=== PATIENT | female | born 1955 | race Caucasian/White ===

== ENCOUNTER 2017-07-17 20:30 | Emergency (ER) | payer MEDICAID ==
[~2017-07-17] VITALS: Ht 157.5 cm; Wt 76.2 kg
[~2017-07-17 20:30] MED LIST: METFORMIN HCL500 MG PO
[2017-07-17 20:37] VITALS: Ht 157.5 cm; Wt 76.2 kg
[2017-07-17 22:09] VITALS: BP 160/87
== END 2017-07-17 22:09 | disposition home or self-care (01) ==
LOC: ED 20:30
DX: L02.01 Cutaneous abscess of face (principal); E11.9 Type 2 diabetes mellitus without complications
CPT/HCPCS: J2001

== ENCOUNTER 2018-12-10 11:57 | Inpatient (IN) | payer MEDICAID ==
[~2018-12-10] VITALS: Ht 157.5 cm; Wt 75.7 kg
[2018-12-10 12:34] LABS: BASOPHIL % 0.4 % (0-2); PLATELET COUNT 262 x10^3mcL (130-400); RED CELL DISTRIBUTION WIDTH 12.7 % (11.5-14.5)
[2018-12-10 12:50] LABS: ALBUMIN 1.9 g/dL (3.4-5.0); BILIRUBIN TOTAL 0.5 mg/dL (0.20-1.00); CALCIUM 7.7 mg/dL (8.5-10.1); CARBON DIOXIDE 26.4 mmol/L (21-32); CREATININE SERUM 1.7 mg/dL (0.6-1.0); TOTAL PROTEIN, SERUM 6.6 g/dL (6.4-8.2)
--- NOTE | 2018-12-10 14:15 | NUR ---
PT OFF OF UNIT TO RADIOLOGY VIA [facility].
[2018-12-10 14:44] LABS: microscopic required? YES; urine erythrocyte 1+ (NEGATIVE)
--- NOTE | 2018-12-10 14:56 | NUR ---
PT BROUGHT BACK FROM ULTRASOUND, AAOX4, RESP E/U, NO ACUTE DISTRESS NOTED AT THIS TIME.
--- NOTE | 2018-12-10 15:52 | NUR ---
PT AMBULATED TO RESTROOM, STEADY GAIT NOTED.
--- NOTE | 2018-12-10 17:30 | NUR ---
PT AMBULATED TO RESTROOM, STEADY GAIT NOTED.
--- NOTE | 2018-12-10 17:50 | NUR ---
REPORT GIVEN TO MARY GARCIA ON MED/SURG UNIT TO ASSUME CARE OF PT
--- NOTE | 2018-12-10 18:00 | NUR ---
RECEIVED PT FROM ED [facility]IA [facility], CAME IN DUE TO VOMITING AND ABDOMINAL PAIN X3 DAYS. AAOX4. DENIES HEADACHE/DIZZINESS. ABLE TO FOLLOW COMMANDS. NO SOB NOTED. DENIES CHEST PAIN/PRESSURE. DENIES ABDOMINAL DISCOMFORT AT THIS TIME. LAST BM TODAY, FORMED. ABDOMEN IS SOFT. VOIDS. IV SITE PATENT AND INTACT. RECEIVED PT FROM ED W/ NS BOLUS ONGOING. SIDE RAILS UPX2. CALL LIGHT ON REACH. SON AT BEDSIDE. ENDORSED TO PRIMARY NURSE JOSE FOR CONTINUITY OF CARE
[2018-12-10 18:10] VITALS: BP 148/73
[2018-12-10 18:14] VITALS: Ht 157.5 cm; Wt 75.7 kg
--- NOTE | 2018-12-10 18:47 | NUR ---
PT RESTING IN BED, AOX4, RESP E/U ON RA. DENIES HEADACHE, ABD PAIN OR N/V AT THIS TIME. NO ACUTE DISTRESS NOTED. SEEN BY DR. QUINTANILLA AT BEDSIDE. IV TO R HAND W/ NO SIGNS OF INFILTRATION, INFUSING BOLUSES STARTED IN THE ER INFUSING WELL. BED IN LOWEST POSITION AND CALL LIGHT WITHIN REACH. PT SON AT BEDSIDE. WILL ENDORSE TO ONCOMING NURSE.
--- NOTE | 2018-12-10 19:05 | NUR ---
RECEIVED PT SITTING UP IN BED EATING DINNER, FEEDING SELF, NO DYSPHAGIA NOTED. NO ACUTE DISTRESS OBSERVED, DENIES PAIN OR DISCOMFORT AT THIS TIME. AA/OX4, ABLE TO MAKE NEEDS KNOWN, SPEECH CLEAR AND APPORPRIATE. MED-SURG, NO TELE, NO CP. PULSES PRESENT AND EQUAL THROUGHOUT, NO EDEMA. BREATHING ON RA, EVEN AND UNLABORED, NO SOB OR DYSPNEA OBSERVED. ABD ROUND AND SOFT WITH ACTIVE BOWEL SOUNDS, DENIES N/V/D. FREELY VOIDS URINE,UA (+) UTI, PT DENIES DYSURIA, BURNING WITH URINATION, OR URGENCY. AMBULATORY WITH BRP, ABLE TO TURN AND REPOSITION SELF IN BED. IV TO RH IN PLACE, INFUSING ORDERED NS BOLUSES AT THIS TIME, NO S&S PHLEBITIS OR INFILTRATION NOTED. COMFORT AND SAFETY MEASURES IN PLACE. ALL NEEDS ASSESSED AND ATTENDED TO. CALL LIGHT WITHIN REACH. WILL CONTINUE TO MONITOR
[2018-12-10 19:30] VITALS: BP 158/69
[2018-12-10 21:00] VITALS: BP 137/76
--- NOTE | 2018-12-10 21:00 | NUR ---
IVF BOLUSES OF NS FINISHED ORDERED, VITAL SIGNS STABLE AND INPUTTED. PT AMBULATING AROUND ROOM WITH STRONG AND STEADY GAIT. NO ACUTE DISTRESS OBSERVED. CALL LIGHT WITHIN REACH. WILL CONTINUE TO MONITOR
--- NOTE | 2018-12-11 06:13 | NUR ---
NO SIGNIFICANT CHANGES TO REPORT, PT COMPLIED WITH NURSING CARE THROUGHOUT THE SHIFT WITH NO ACUTE EVENTS OVERNIGHT. NO ACUTE DISTRESS OBSERSVED AT THIS TIME. PT LAYING IN BED, BREATHING EVEN AND UNLABORED. COMFORT AND SAFETY MEASURES MAINTAINED. ALL NEEDS ASSESSED AND ATTENDED TO. CALL LIGHT WITHIN REACH. WILL CONTINUE TO MONITOR AND ENDORSE CARE TO DAY SHIFT NURSE
[2018-12-11 06:19] LABS: BASOPHIL % 0.3 % (0-2); PLATELET COUNT 269 x10^3mcL (130-400); RED CELL DISTRIBUTION WIDTH 12.6 % (11.5-14.5)
[2018-12-11 06:34] LABS: CALCIUM 7.5 mg/dL (8.5-10.1); CARBON DIOXIDE 22.8 mmol/L (21-32); CREATININE SERUM 1.1 mg/dL (0.6-1.0); MAGNESIUM 1.6 mg/dL (1.8-2.4); PHOSPHOROUS 2.8 mg/dL (2.5-4.9); POTASSIUM SERUM 4.1 mmol/L (3.5-5.1)
--- NOTE | 2018-12-11 07:10 | NUR ---
RECEIVED REPORT FROM KAYLI RN, PT IN BED W/ NO ACUTE DISTRESS
--- NOTE | 2018-12-11 07:30 | NUR ---
PT IN BED, IN NO ACUTE DISTRESS, VERBAL, [place], ABLE TO MAKE NEEDS KNOWN, CALM AND COPPERATIVE, PERRLA, NO REDNESS/DRAINAGE, RESP EVEN, NO SOB/COUGH, MEDSURG, DENIED CP/PRESSURE/SOSA, DENIED N/V/D, CHEST RISE SYMMETRICALLY, ABD ROUND AND NONTENDER TO TOUCH, CARDIAC/CCHO DIET, RA, LUNGS CTA, BS ACTIVE X4, CAP REFILL < 3S, PALP PULSES, UA (+), ROCEPHIN IVPB QD, IV PATENT AND INFUSING WELL, AMBULATORY, CONTINENT, ALL NEEDS ADDRESSED AT THIS TIME, SAFETY PROTOCOL FOLLOWED, CONTINUE TO MONITOR
[2018-12-11 08:16] VITALS: BP 150/73
--- NOTE | 2018-12-11 09:15 | NUR ---
AM MED GIVEN PER EMAR, TAKEN WELL, NO ASE NOTED AT THIS TIME, CONTINUE TO MONITOR
--- NOTE | 2018-12-11 10:16 | NUR ---
MIDSTREAM URINE COLLECTED FOR [facility] LAB ORDER, SENT TO LAB, PT MADE AWARE
--- NOTE | 2018-12-11 10:31 | NUR ---
PT RESTING IN BED W/ NO APPARENT ACUTE DISTRESS, CONTINUE TO MONITOR
--- NOTE | 2018-12-11 11:28 | NUR ---
DR QUINTANILLA PAGED R/T PT CURRENT BP RESULT NOTED 175/83 (114), [id number], NO CALL BACK AT THIS TIME, CHARGE NURSE OMARI MADE AWARE
[2018-12-11 11:30] VITALS: BP 175/83
[2018-12-11] MEDS ORDERED: LEVAQUIN750 MG PO (12:17)
[2018-12-11 12:56] VITALS: BP 175/83
--- NOTE | 2018-12-11 13:19 | NUR ---
PT ASSISTED TO BATHROOM, VOID X 1, BACK TO BED, IN NO ACUTE DISTRESS, CONTINUE TO MONITOR
--- NOTE | 2018-12-11 13:24 | NUR ---
Discount pharmacy card and list to low cost medical clinics given to patient by Martha Eddy.
--- NOTE | 2018-12-11 13:28 | NUR ---
PT MADE AWARE OF DC ORDER, SAID SON LEE P/U AROUND 5-530PM AFTER WORK, PT AWAITING FOR CALLING BACK FROM SON FOR TIME CONFIRMATION
--- NOTE | 2018-12-11 14:28 | NUR ---
PT SEEN BY DR QUINTANILLA, MADE AWARE OF POSSIBLE DC HOME TODAY
--- NOTE | 2018-12-11 15:10 | NUR ---
IV REMOVED, IV CATH TIP INTACT, NO ACTIVE BLEEDING NOTED
--- NOTE | 2018-12-11 15:19 | NUR ---
DC PAPER SIGNED, PT MADE AWARE OF NEW PRESCRIPTION AND APT W/ PCP SCHEDULED IN DC PACKAGE, PT AWARE OF IT'S HER RESPONSIBILITY TO F/U W/ PCP AFTER DC FOR GROUP HOME CARE, EDUCATION R/T NEW MEDICATION, S/E, DIET GIVEN TO PT, VERBALLY UNDERSTANDING, ALL NEEDS ADDRESSED AT THIS TIME, PT RESTING IN BED W/ NO APPARENT ACUTE DISTRESS, PT WILL BE DC HOME, SON P/U UP W/ FAMILY VEHICLE
== END 2018-12-11 18:15 | disposition home or self-care (01) | DRG 420 ==
LOC: ED 11:57 → MU 17:06
PROVIDERS: Emergency Medicine; ADMIT Internal Medicine
DX: E11.65 Type 2 diabetes mellitus with hyperglycemia (principal); N17.0 Acute kidney failure with tubular necrosis; E43 Unspecified severe protein-calorie malnutrition; E83.51 Hypocalcemia; E86.0 Dehydration; N39.0 Urinary tract infection, site not specified; B96.1 Klebsiella pneumoniae [K. pneumoniae] as the cause of diseases classified elsewhere; E87.1 Hypo-osmolality and hyponatremia; I10 Essential (primary) hypertension; D64.9 Anemia, unspecified; Z91.14 Patient's other noncompliance with medication regimen; Z79.84 Long term (current) use of oral hypoglycemic drugs; Z87.891 Personal history of nicotine dependence; Z68.33 Body mass index [BMI] 33.0-33.9, adult
CPT/HCPCS: 82962; 97116-GP; G0378; J0696; J1815; J1885; J2405; J7030; J7060; Q0092